=== PATIENT | male | born 1980 | race Caucasian/White ===

== ENCOUNTER → 2018-04-27 | Outpatient (CLI) | payer OTHER | END | disposition home or self-care (01) | LOC: RAD 13:57 | DX: J45.909 Unspecified asthma, uncomplicated (principal) | CPT/HCPCS: 71046 ==

== ENCOUNTER → 2018-04-30 | Outpatient (CLI) | payer OTHER | END | disposition home or self-care (01) | LOC: CT 07:55 | DX: J84.848 Other interstitial lung diseases of childhood (principal); J45.909 Unspecified asthma, uncomplicated; M43.8X4 Other specified deforming dorsopathies, thoracic region | CPT/HCPCS: 71250 ==